=== PATIENT | female | born 1965 | race Caucasian/White ===

== ENCOUNTER → 2016-07-13 | Emergency (ER) | payer OTHER, MEDICARE ==
[~2016-07-13] VITALS: Ht 167.6 cm; Wt 98.4 kg
[~2016-07-13] MED LIST: ACYC200C PO; BPR75T PO; CYCL10TA45 PO; DICY20TA10 PO; DIPH1TAB45 PO; DIVA125T3 PO; GBPN300C PO; METF500T4 PO; ONDAN4ODT PO; OXAP600T2 PO
--- NOTE | 2016-07-13 13:33 | Diagnostic Imaging Report ---
INDICATION: Left foot pain. DISCUSSION: 2 views of the left foot were obtained. No comparison. Small plantar calcaneal enthesophyte is incidentally noted. No acute fracture or dislocation. Alignment is anatomic. Soft tissues are unremarkable. The joint spaces are well maintained. No radiopaque foreign body. IMPRESSION: Negative left foot. Dictated by: Dictated on workstation # [id number]
--- NOTE | 2016-07-13 13:34 | Diagnostic Imaging Report ---
INDICATION: Left ankle injury. DISCUSSION: Three views of the left ankle were obtained, no comparison. The ankle mortise is symmetric. No fracture or dislocation. Diffuse circumferential soft tissue swelling is noted. IMPRESSION: 1. Left ankle soft tissue swelling. No fracture identified. Dictated by: Dictated on workstation # [id number]
[2016-07-13 13:52] VITALS: BP 111/54
== END | disposition home or self-care (01) ==
LOC: ED 11:42
DX: S93.412A Sprain of calcaneofibular ligament of left ankle, initial encounter (principal); S93.492A Sprain of other ligament of left ankle, initial encounter; W10.1XXA Fall (on)(from) sidewalk curb, initial encounter; Y92.008 Other place in unspecified non-institutional (private) residence as the place of occurrence of the external cause; Z87.891 Personal history of nicotine dependence
CPT/HCPCS: 73610; 73620; 99282; L4350